=== PATIENT | male | born 1940 | race American Indian/Alaskan Native ===

== ENCOUNTER 2019-03-30 06:35 | Emergency (ER) | payer MEDICARE, BC ==
--- NOTE | 2019-03-30 08:01 | Emergency Department Report ---
ED Male HPI - General Chief complaint: Urogenital-Male Stated complaint: usama hinton Time Seen by Provider: 03/30/19 07:45 Source: patient, police Limitations: No Limitations - History of Present Illness Initial comments: Pvt. urologist: [facility] Past medical history: Glaucoma, diabetes, hypertension, "big prostate" This is a pleasant 78-year-old gentleman. This patient is not known to this provider previously. The patient presents to ER today with a complaint of suprapubic fullness and inability to urinate. This is atraumatic. He states it's happened before. He denies additional complaints. A Vaughn catheter was placed in the emergency room, which immediately improved his symptoms. MD Complaint: other -: Sudden Consistency: constant, now resolved Improves with: other Worsens with: none denies other symptoms, urinary retention - Related Data Sexually active: Yes Home Medications Medication Instructions Recorded Confirmed Last Taken AtorvaSTATin [Lipitor] 10 mg PO QHS 03/30/19 03/30/19 03/29/19 Brimonidine/Timolol 0.2-0.5% 1 drops OP Q12H 03/30/19 03/30/19 03/29/19 [Combigan 0.2-0.5%] Finasteride 5 mg PO QDAY 03/30/19 03/30/19 03/29/19 Insulin NPH Hum/Reg Insulin Hm 100 unit SQ UNK 03/30/19 03/30/19 03/29/19 [HumuLIN 70-30 Vial] Latanoprost 0.005% [Xalatan 0.005%] 1 drop OP QPM 03/30/19 03/30/19 03/29/19 Losartan [Cozaar] 100 mg PO QDAY 03/30/19 03/30/19 03/29/19 Previous Rx's Medication Instructions Recorded Last Taken Type Magnesium Oxide [Mag-Ox] 400 mg PO QDAY #14 tablet 03/30/19 Unknown Rx ED Review of Systems ROS: Stated complaint: Other details as noted in HPI Constitutional: denies: fever Eyes: denies: eye discharge ENT: denies: congestion Respiratory: denies: wheezing Cardiovascular: denies: paroxysmal nocturnal dyspnea Gastrointestinal: denies: nausea, vomiting Genitourinary: denies: testicular pain Musculoskeletal: denies: back pain Skin: denies: lesions Neurological: denies: weakness ED Past Medical Hx - Medications Home Medications: Home Medications Medication Instructions Recorded Confirmed Last Taken Type AtorvaSTATin [Lipitor] 10 mg PO QHS 03/30/19 03/30/19 03/29/19 History Brimonidine/Timolol 0.2-0.5% 1 drops OP Q12H 03/30/19 03/30/19 03/29/19 History [Combigan 0.2-0.5%] Finasteride 5 mg PO QDAY 03/30/19 03/30/19 03/29/19 History Insulin NPH Hum/Reg Insulin Hm 100 unit SQ UNK 03/30/19 03/30/19 03/29/19 History [HumuLIN 70-30 Vial] Latanoprost 0.005% [Xalatan 0.005%] 1 drop OP QPM 03/30/19 03/30/19 03/29/19 History Losartan [Cozaar] 100 mg PO QDAY 03/30/19 03/30/19 03/29/19 History Magnesium Oxide [Mag-Ox] 400 mg PO QDAY #14 tablet 03/30/19 Unknown Rx ED Physical Exam - General Limitations: No Limitations General appearance: alert, anxious - Head Head exam: Present: atraumatic, normocephalic - Eye Eye exam: Present: normal appearance, EOMI. Absent: nystagmus - ENT ENT exam: Present: normal exam, normal orophraynx, mucous membranes moist, norm al external ear exam - Neck Neck exam: Present: normal inspection, full ROM. Absent: tenderness, meningismus - Respiratory Respiratory exam: Present: normal lung sounds bilaterally. Absent: respiratory distress - Cardiovascular Cardiovascular Exam: Present: regular rate, normal rhythm, normal heart sounds. Absent: bradycardia, tachycardia, irregular rhythm, systolic murmur, diastolic murmur, rubs, gallop - GI/Abdominal GI/Abdominal exam: Present: soft. Absent: distended, tenderness, guarding, rebound, rigid, pulsatile mass - Rectal Rectal exam: Present: deferred - exam: Present: normal inspection External exam: Present: normal external exam, other (chaperoned by nurse Royce Dodson) - Extremities Exam Extremities exam: Present: normal inspection, full ROM, other (2+ pulses noted in the bilateral upper, lower extremities. There is no long bone tenderness. Musculoskeletal compartments are soft. The pelvis is stable.). Absent: tenderness, pedal edema, joint swelling, calf tenderness - Back Exam Back exam: Present: normal inspection, full ROM. Absent: tenderness, CVA tenderness (R), CVA tenderness (L), paraspinal tenderness, vertebral tenderness - Neurological Exam Neurological exam: Present: alert, normal gait, other (there is no facial droop. The tongue is midline. Extraocular movements are intact bilaterally. Patient speaking in full complete sentences. Shoulder shrug is intact bilaterally. Hearing is grossly intact bilaterally. Visual acuity intact to finger counting and color perception at a close distance. 5/5 strength 4 extremities. Sensation intact to light touch in 4 extremities.). Absent: motor sensory deficit - Psychiatric Psychiatric exam: Present: normal affect, normal mood - Skin Skin exam: Present: warm, dry, intact, normal color. Absent: rash ED Course Vital Signs 03/30/19 03/30/19 08:11 09:15 Temperature 98 F Pulse Rate 92 H 68 Respiratory 16 20 Rate Blood Pressure 173/93 150/81 [Right] O2 Sat by Pulse 99 100 Oximetry ED Medical Decision Making - Lab Data Result diagrams: 03/30/19 08:29 Vital Signs 03/30/19 08:11 Pulse Rate 92 H Respiratory 16 Rate Blood Pressure 173/93 [Right] O2 Sat by Pulse 99 Oximetry Lab Results 03/30/19 03/30/19 Range/Units 08:04 08:29 Sodium 140 (137-145) mmol/L Potassium 4.3 (3.6-5.0) mmol/L Chloride 103.4 (98-107) mmol/L Carbon Dioxide 22 (22-30) mmol/L Anion Gap 19 mmol/L BUN 16 (9-20) mg/dL Creatinine 1.1 (0.8-1.5) mg/dL Estimated GFR > 60 ml/min BUN/Creatinine Ratio 15 % Glucose 142 H (75-100) mg/dL Calcium 8.5 (8.4-10.2) mg/dL Magnesium 1.40 L (1.7-2.3) mg/dL Urine Color Straw (Yellow) Urine Turbidity Clear (Clear) Urine pH 6.0 (5.0-7.0) Ur Specific [place] 1.011 (1.003-1.030) Urine Protein 30 mg/dl (Negative) mg/dL Urine Glucose (UA) Neg (Negative) mg/dL Urine Ketones Neg (Negative) mg/dL Urine Blood Sm (Negative) Urine Nitrite Neg (Negative) Urine Bilirubin Neg (Negative) Urine Urobilinogen < 2.0 (<2.0) mg/dL Ur Leukocyte Esterase Neg (Negative) Urine WBC (Auto) < 1.0 (0.0-6.0) /HPF Urine RBC (Auto) 8.0 (0.0-6.0) /HPF Triage vital signs: Blood pressure 173/95 Heart rate 103 bpm Pulse ox 99% on room air Temperature 97.5F Respirations 14 -16/m - Medical Decision Making Differential diagnosis, including but not limited to: Urinary retention, BPH, obstructive uropathy, urinary tract infection Assessment and plan: 78-year-old gentleman with reported history of obstructive uropathy, presenting with urinary retention, now resolved with placement of Vaughn catheter The patient is afebrile with reassuring vital signs with resolving elevated blood pressure. He is put out approximately 250 mL of clear urine. Hypomagnesemia is addressed. Urinalysis not consistent with urinary tract infection. We've not seen any evidence of excessive postobstructive diuresis. Patient observed in the ER without decompensation for a few hours. The patient is medically suitable at this point in time for discharge. Critical care attestation.: If time is entered above; I have spent that time in minutes in the direct care of this critically ill patient, excluding procedure time. ED Disposition Clinical Impression: Obstructive uropathy, Hypomagnesemia Disposition: - TO HOME OR SELFCARE Is pt being admited?: No Does the pt Need Aspirin: No Condition: Stable Instructions: Vaughn Catheter Placement and Care (ED), Urinary Leg Bag (GEN) Additional Instructions: Continue current outpatient medications. Cultures worsened today, and results will be available in the next 3-5 days. Have your primary care doctor or urology specialists contact the medical records department to obtain culture results. keep The Vaughn catheter leg bag in place, and please follow-up with your urology specialist within 7 days for trial of void. Take the magnesium supplementation as directed, please return to the emergency room right away with new, worsened, different symptoms not present on the initial emergency room evaluation. Referrals: [facility] [Provider Group] - 3-5 Days
[2019-03-30 08:25] LABS: Bilirubin,Urine NEG (Negative); Blood,Urine SM (Negative); Color,Urine Straw (Yellow); Urobilinogen,Urine < 2.0 mg/dL (<2.0); WBC,Urine < 1.0 /HPF (0.0-6.0)
[2019-03-30 09:05] LABS: BUN/Creatinine Ratio 15; Blood Urea Nitrogen 16 mg/dL (9-20); Calcium 8.5 mg/dL (8.4-10.2); Hemolysis Index 9
[2019-03-30 09:16] VITALS: BP 150/81
[2019-03-30] MEDS ORDERED: MAGNESIUM OXIDE 400 MG TAB PO ONE (09:30)
== END 2019-03-30 10:32 | disposition home or self-care (01) ==
LOC: ED 06:35
DX: E83.42 Hypomagnesemia (principal); N13.9 Obstructive and reflux uropathy, unspecified; Z79.899 Other long term (current) drug therapy
CPT/HCPCS: 36415; 51702; 80048; 81001; 82550; 83735; 87086